=== PATIENT | female | born 1975 | race Caucasian/White ===

== ENCOUNTER 2018-03-28 05:44 | Day surgery (SDC) | payer BC ==
[2018-03-24 11:21] VITALS: BMI 40.8
--- NOTE | 2018-03-27 21:31 | HP ---
DATE OF PLANNED PROCEDURE: 03/28/2018 PROCEDURE TO BE PERFORMED: Robotic assisted total laparoscopic hysterectomy with bilateral salpingec rina. HISTORY OF PRESENT ILLNESS: Ms. Nicki Desai is a 43-year-old, G5, who was referred to my clinic for abnormal uterine bleeding. She has a history of tubal ligation. She did give a 12-month history of irregular periods that are anywhere from every 2-8 weeks. She reports that her periods are very hea vy requiring a pad and a tampon to be worn at the same time soaking through and changing her pad and tampon every other hour. She reports that on her heavy days of the cycle that she has to limit her a ctivities due to the excessive blood loss. In her first consultation, the patient had an ultrasound as well as an endometrial biopsy and we discussed surgical and medical management options. At that t karli, the patient decided to begin with oral contraceptive pills and was given information about the M nikolai IUD. We also discussed ablation versus hysterectomy at that time so that the patient was able to consider all of her options. The patient followed up approximately 1 month later reporting no imp rovement in her bleeding profile with medical management and requesting definitive surgical managemen t. PAST MEDICAL HISTORY: Obesity, depression, lymphoma. PAST SURGICAL HISTORY: Appendectomy, tubal ligation, 5 vaginal deliveries. CURRENT MEDICATIONS: Trazodone 100 mg and venlafaxine 150 mg. GYNECOLOGIC HISTORY: Most recent Pap smear within normal limits. Negative HPV. History of LEEP man y years ago, tubal ligation for contraception. SOCIAL HISTORY: The patient has never been a smoker. 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 She is curren tly and sexually active. ALLERGIES: The patient is allergic to BENADRYL. FAMILY HISTORY: Noncontributory with the exception of the patient having her own history of non-Hodg kin's lymphoma. REVIEW OF SYSTEMS: Negative except as stated in the HPI. PHYSICAL EXAMINATION: VITAL SIGNS: Height 5 feet 6 inches, weight 258 pounds, BMI 42, blood pressure 120. Pulse 88, respi rations 18, O2 sat 99%. GENERAL: No acute distress. Alert and oriented. CARDIOVASCULAR: Regular rate and rhythm. LUNGS: Clear to auscultation bilaterally. ABDOMEN: Obese, soft, nontender. No hepatosplenomegaly. No palpable masses. GENITOURINARY: Normal external female genitalia, normal vaginal mucosa, no vaginal discharge, no cer vical lesions, no cervical discharge, no cervical motion tenderness. Uterus is in normal position, n ot enlarged, nontender. Adnexa normal on bimanual exam. MUSCULOSKELETAL: Grossly normal. NEUROLOGIC: Normal. SKIN: Normal. PSYCHIATRIC: Appropriate affect. DIAGNOSTIC STUDIES: HPV negative, Pap smear negative for intraepithelial lesion or malignancy. Endo metrial biopsy with scant endometrial tissue with saccular secretory type endometrial glands within t he stroma with predominant decidual change, no hyperplasia, atypia or malignancy identified. Ultraso und uterus 9.2 x 5.4 cm endometrium 10.98 mm. Right ovary normal, left ovary normal. No free fluid. ASSESSMENT AND PLAN: Ms. Nicki Desai is a 43-year-old with history of tubal ligation and long history of menorrhagia, not controlled with medical management. The patient desires definitive surg ical management. She understands the risk and benefits of the hysterectomy as well as alternative me dical and surgical options. She understands the risks are to include, but not limited to bleeding, i nfection, damage to intraabdominal pelvic organs, inability to fully diagnose and treat all condition s at the time of surgery and possible need for future medical and/or surgical management. The patien t also understands their inherent risk of surgery and anesthesia that will be reviewed with the [facility] team on the day of surgery. She has also been counseled and consented for ON-Q pump placement at the time of her surgery. Her questions have been answered and she desires to proceed with the pro cedure as listed above.
[2018-03-28] MEDS ORDERED: Famotidine/PF 20 mg/2ml Vial ONE ×2 (06:43→06:50)
[2018-03-28] MEDS ORDERED: CeleCOXIB 100 MG CAP ONE (06:43)
[2018-03-28] MEDS ORDERED: CEFAZOLIN/Water 2 GM/20 ML SYRINGE ONE (06:43)
[2018-03-28] MEDS ORDERED: Gabapentin 300 MG CAP ONE (06:43)
[2018-03-28] MEDS ORDERED: Midazolam HCl 2 mg/2 ml Vial ONE (07:00)
[2018-03-28] MEDS ORDERED: Fentanyl 100 MCG/2 ML VIAL ONE ×2 (07:00→10:31)
[2018-03-28] MEDS ORDERED: Bupivacaine HCl 0.5%/Epinephrine 1:200,000/PF 30 ml Vial ONE (07:14)
[2018-03-28 07:45] LABS: Hemoglobin 12.2 g/dL (12.0-16.0); Platelet Count 196 thou/uL (130-400)
[2018-03-28] MEDS ORDERED: Ropivacaine HCl/PF 750 ML in Premix Bag 1 BAG NERVE BLCK SCH (08:15)
[2018-03-28] MEDS ORDERED: Ropivacaine 0.2% 550 ML 750 ML NERVE BLCK SCH (08:15)
[2018-03-28] MEDS ORDERED: Promethazine HCl 25 MG/ML VIAL IM PRN (12:31)
[2018-03-28] MEDS ORDERED: Ondansetron HCl/PF 4 MG/2 ML Vial IVP PRN ×2 (12:31→13:29)
[2018-03-28] MEDS ORDERED: Promethazine HCl 25 MG/ML VIAL SLOW IVP PRN (12:31)
[2018-03-28] MEDS ORDERED: Acetaminophen/Codeine 30-300mg Tablet PO PRN (13:29)
[2018-03-28] MEDS ORDERED: diphenhydrAMINE 25 MG CAP PO PRN (13:29)
[2018-03-28] MEDS ORDERED: Bisacodyl 10 MG SUPP PR PRN (13:29)
[2018-03-28] MEDS ORDERED: Simethicone Chewable 80 MG TAB PO PRN (13:29)
[2018-03-28] MEDS ORDERED: Glycopyrrolate 0.2 MG/ML 5 ML SYRINGE ONE (13:31)
[2018-03-28] MEDS ORDERED: Ondansetron HCl/PF 4 MG/2 ML Vial ONE (13:31)
[2018-03-28] MEDS ORDERED: PHENYLEPHRINE-NS 100 MCG/ML 10 ML SYRINGE ONE (13:31)
[2018-03-28] MEDS ORDERED: Ketorolac Tromethamine 30 MG/ML VIAL ONE (13:31)
[2018-03-28] MEDS ORDERED: Dexamethasone 20 MG/5 ML VIAL ONE (13:31)
[2018-03-28] MEDS ORDERED: PROPOFOL 200 MG/20 ML VIAL ONE (13:31)
[2018-03-28] MEDS ORDERED: Lidocaine 1% PF 5 ML VIAL ONE (13:31)
[2018-03-28] MEDS: Acetaminophen/Codeine 30-300mg Tablet PO PRN ×2 (13:39→20:05)
[2018-03-28] MEDS: Sodium Chloride 0.9% 1,000 ML IV SCH ×2 (15:38→21:39)
--- NOTE | 2018-03-28 16:02 | OP ---
DATE OF PROCEDURE: 03/28/2018 PREOPERATIVE DIAGNOSIS: Menorrhagia, refractory to medical management. POSTOPERATIVE DIAGNOSIS: Menorrhagia, refractory to medical management. PROCEDURE PERFORMED: Robotic-assisted total laparoscopic hysterectomy with bilateral salpingectomy a nd placement of ON-Q pump. SURGEON: Salazar Polk D.O. SOFTWARE APPLICATIONS SPECIALIST: Denzel Mejia M.D. COMPLICATIONS: None. ESTIMATED BLOOD LOSS: 100 mL FINDINGS: Normal-appearing vagina and cervix. Uterus sounds to 10 cm. LAPAROSCOPIC FINDINGS: 1. Normal-appearing tubes and ovaries. Enlarged uterus with no suspicious masses noted. 2. Surgical sites hemostatic. 3. Morbid obesity. PROCEDURE DETAILS: The patient was taken back to the OR with IV fluids running. Once she was in the OR, she was placed in dorsal supine position and general anesthesia was obtained. Once the patient was asleep, she was placed in low dorsal lithotomy position and the abdomen and vagina were prepped a nd draped in normal fashion for gynecologic laparoscopy. The bladder was drained approximately 30 mL of concentrated urine. An operative speculum was placed into the vagina with the above findings not ed. A tenaculum was placed on the anterior lip of the cervix and the cervix was sounded to 10 cm. A [email or web address] manipulator was assembled with a 10 cm tip and a 4 cm cup and was placed into the uterus an d vagina in the normal fashion for uterine manipulation during the case. Surgeon's gloves were lopez ed and attention was then turned to laparoscopic portion of the case. Beginning approximately 2 cm a ankush the umbilicus, local anesthesia was placed into the skin. A 12-mm skin incision was made with t he scalpel and a Veress needle was placed through the skin incision into the peritoneal cavity withou t difficulty. The peritoneal cavity was then insufflated. The Veress needle was then removed and a 12-mm trocar was placed through the incision without difficulty. Laparoscope was then placed through the trocar. No evidence of injury noted within the abdominal cavity. The abdomen was inspected wit h the above findings noted. Next, under direct visualization, the right and left lower quadrant 8 mm trocars were placed after local anesthesia was placed under the skin and a scalpel was used to incis e the skin. In similar fashion, a right upper quadrant 11 mm port was placed. Once all the trocars were in, robotic arms were docked to the trocars and the instruments were advanced under laparoscopic view. Beginning on the patient's left side, the left fallopian tube segment was grasped, cauterized and excised from the ovary and mesosalpinx using bipolar and monopolar cautery. Tube segment was re moved for pathologic review. The utero-ovarian ligament on the patient's left side was cauterized an d divided, freeing the left ovary from the uterus. The round ligament was then cauterized, incised a nd divided into anterior and posterior leafs. The uterine artery was skeletonized and the anterior p ortion of the broad ligament was taken down towards the cervix to create a bladder flap. The bladder was gently and easily dissected away from the future colpotomy site. Attention was then turned to t he contralateral side where the right fallopian tube segment was dissected away from the adnexa. The right utero-ovarian ligament was then cauterized and cut allowing the right ovary to fall away to th e adnexa. The round ligament on the patient's right side was cauterized, incised and divided into an terior and posterior leaves. It was dissected down towards the level of the uterine artery, which wa s then skeletonizing. The anterior leaf was taken down towards the contralateral formed bladder flap and the bladder was then gently dissected away from the planned colpotomy site across the entire [place] cervix. The uterine arteries on the patient's right side were cauterized and divided with good hemostasis noted. Attention was turned to the contralateral side where the uterine arteries and acce ssory vessels were cauterized, divided away from the specimen. The colpotomy was then performed circ umferentially using monopolar scissors. After the colpotomy was complete, the uterine and cervix spe cimen were retracted into the vagina and kept there for pneumoperitoneum. The vaginal cuff and surgi carlos pedicle sites were copiously irrigated and suctioned dry. The vaginal cuff was closed in 2 layer s in a running fashion with Stratafix suture. Once the vagina was closed and noted to be hemostatic, a final irrigation was completed of the vaginal cuff and surgical pedicles. The irrigation was suck ed dry from the pelvis. The pressure was dropped to 7 mmHg with no evidence of bleeding. An ON-Q ca theter tip was placed under direct visualization below the umbilicus and directed down towards the pe lvis. The catheter tip was primed. The instruments were removed from the abdominal cavity. The gas was released from the abdomen. The supraumbilical port site was closed at the fascial layer with Vi cryl suture. All 4 skin incisions were closed with Monocryl suture and dressed with Dermabond dressi ng. The vagina was inspected at the end of the case with no bleeding noted from the cuff closure and no sidewall injuries noted. The patient was cleaned, dried and taken out of lithotomy position. Sh e was extubated and transferred to recovery room.
[2018-03-28] MEDS: Ketorolac Tromethamine 30 MG/ML VIAL IVP SCH (18:00)
[2018-03-28] MEDS ORDERED: Venlafaxine HCl XR 150 MG CAP PO SCH (21:00)
[2018-03-28] MEDS ORDERED: traZODone HCl 50 MG TAB PO SCH (21:00)
[2018-03-29] MEDS: Ketorolac Tromethamine 30 MG/ML VIAL IVP SCH ×2 (00:04→06:14)
[2018-03-29] MEDS: Sodium Chloride 0.9% 1,000 ML IV SCH (06:55)
[2018-03-29 08:08] VITALS: BP 106/52; TEMP 98.5
--- NOTE | 2018-03-29 10:22 | PDOC.EVN ---
Event Note - Event Note Event Note: POD1 S: no pain, doing well, antonella regular diet O: Vital Signs (12 hours) Temp Pulse Resp BP Pulse Ox 03/29/18 08:08 98.5 F 89 20 106/52 L 03/29/18 04:28 98.1 F 91 16 98/55 L 98 03/29/18 00:04 98.8 F 78 17 98/50 L 97 Weight Weight 253 lb NAD A and O nonlaored breathing abd obese, NTTP, inc CDI x 4, nondistended lay dry A/P: POD1 doing well, plan for DC today w OnQ
[2018-04-02] MEDS ORDERED: Ibuprofen 800 MG TAB PO SCH (22:00)
== END 2018-03-29 11:25 | disposition home or self-care (01) ==
LOC: SDC 05:44 → 3SE 09:57 → EDSTATUS 10:00 → SDC 03-29 11:25
PROVIDERS: ATTEND Obstetrics & Gynecology
PROC: 0UT94ZZ Resection of Uterus, Percutaneous Endoscopic Approach (ICD-10-PCS; principal; 2018-03-28)
PROC: 0UT74ZZ Resection of Bilateral Fallopian Tubes, Percutaneous Endoscopic Approach (ICD-10-PCS; principal; 2018-03-28)
DX: N80.0 Endometriosis of uterus (principal); N88.8 Other specified noninflammatory disorders of cervix uteri; N83.8 Other noninflammatory disorders of ovary, fallopian tube and broad ligament; E66.01 Morbid (severe) obesity due to excess calories; F32.9 Major depressive disorder, single episode, unspecified; Z79.899 Other long term (current) drug therapy; Z98.51 Tubal ligation status; Z88.8 Allergy status to other drugs, medicaments and biological substances; Z68.41 Body mass index [BMI] 40.0-44.9, adult
CPT/HCPCS: 36415; 85014; 85018; 85049; 86850; 86900; 86901; 88307; 96374; A4216; J0670; J1100; J1885; J2001; J2250; J2270; J2405; J2704; J2795; J3010; S0028